=== PATIENT | male | born 1990 | race Two or more races ===

== ENCOUNTER 2018-05-20 20:10 | Emergency (ER) | payer OTHER ==
[2018-05-20] MEDS ORDERED: Ondansetron 4 MG/2 ML SDV IVPUSH ONE (20:51)
[2018-05-20] MEDS ORDERED: HYDROmorphone 0.5 MG/0.5 ML SYRINGE IVPUSH ONE (20:51)
[2018-05-20] MEDS ORDERED: Sodium Chloride 0.9% 10 ML Syringe FLUSH PRN (20:51)
[2018-05-20] MEDS ORDERED: Sodium Chloride 0.9% 1,000 ML IV ONE (20:51)
--- NOTE | 2018-05-20 21:47 | EDM.PDOC ---
ED HPI GENERAL MEDICAL PROBLEM - General Chief Complaint: Flank Pain Stated Complaint: KIDNEY PAIN Time Seen by Provider: 05/20/18 20:42 Source of Information: Reports: Patient History Limitations: Reports: No Limitations - History of Present Illness INITIAL COMMENTS - FREE TEXT/NARRATIVE: 27-year-old male presents for evaluation and treatment of kidney pain. Patient reports pain started last night. He reports pain started in his the results of his back and travels to his right flank and down his right lower abdomen and groin. He reports dysuria and hematuria. Reports he had bloody last night. He is currently rating pain at 8 out of 10 but declines pain medication. He reports associated symptoms of nausea. No fevers, chills or vomiting. He denies any penile discharge, swelling or rashes. Patient reports he is afraid to drink water due to the dysuria. Patient reports 2-3 days prior to the pain starting he was urinating what he describes looks like dirt. Denies any penile swelling, erythema, discharge or pain. Patient's never had any abdominal surgeries. He has no primary care provider. Patient reports that this is been going on intermittently since he was a young child, around age 12. states that happens periodically in the last and this occurred he was age 19. States that this has occurred in the past and normally last about 3 or 4 days and resolves on its own without intervention. Serevent tested for STDs. His is present at bedside and states that she has child last her and her STD screen was negative. 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 [No Known Home Meds] 05/20/18 [History] Past Medical History - Past Surgical History HEENT Surgical History: Reports: Oral Surgery Social & Family History - Tobacco Use Smoking Status *Q: Light Tobacco Smoker Years of Tobacco use: 9 Packs/Tins Daily: 0.5 - Caffeine Use Caffeine Use: Reports: Coffee, Energy Drinks, Soda, Tea - Alcohol Use Days Per Week of Alcohol Use: 1 Number of Drinks Per Day: 1 Total Drinks Per Week: 1 - Recreational Drug Use Recreational Drug Use: No ED ROS GENERAL - Review of Systems Review Of Systems: See Below Constitutional: Denies: Fever, Chills GI/Abdominal: Reports: Nausea. Denies: Vomiting : Reports: Dysuria, Flank Pain (right), Hematuria (x1 episode). Denies: Discharge Musculoskeletal: Reports: Back Pain ED EXAM, RENAL/ - Physical Exam Exam: See Below Exam Limited By: No Limitations General Appearance: Alert, WD/WN, No Apparent Distress Throat/Mouth: Normal Inspection, Normal Voice, No Airway Compromise Respiratory/Chest: No Respiratory Distress, Lungs Clear, Normal Breath Sounds Cardiovascular: Normal Peripheral Pulses, Regular Rate, Rhythm, No Murmur GI/Abdominal: Normal Bowel Sounds, Soft, Tender (generalized thought abdomen) Back Exam: Paraspinal Tenderness (low back around L4-L5, right sided). No: CVA Tenderness (L), CVA Tenderness (R) Neurological: Alert, Oriented, Normal Cognition Psychiatric: Normal Affect, Normal Mood Skin Exam: Warm, Dry, Normal Color Course - Vital Signs Last Recorded V/S: Last Vital Signs Temp 98.1 F 05/20/18 22:30 Pulse 56 L 05/20/18 20:17 Resp 13 05/20/18 20:17 BP 119/85 05/20/18 20:17 Pulse Ox 99 05/20/18 20:17 - Orders/Labs/Meds Labs: Laboratory Tests 05/20/18 05/20/18 05/20/18 Range/Units 20:25 20:25 20:50 WBC 8.33 (4.23-9.07) K/mm3 RBC 5.29 (4.63-6.08) M/mm3 Hgb 16.4 (13.7-17.5) gm/L Hct 46.0 (40.1-51.0) % MCV 87.0 (79.0-92.2) fl MCH 31.0 (25.7-32.2) pg MCHC 35.7 H (32.2-35.5) g/dl RDW Std Deviation 39.8 (35.1-43.9) fL Plt Count 268 (163-337) K/mm3 MPV 9.6 (9.4-12.3) fl Neut % (Auto) 67.8 (34.0-67.9) % Lymph % (Auto) 25.3 (21.8-53.1) % [place] % (Auto) 6.0 (5.3-12.2) % Eos % (Auto) 0.7 L (0.8-7.0) Baso % (Auto) 0.1 (0.1-1.2) % Neut # (Auto) 5.64 H (1.78-5.38) K/mm3 Lymph # (Auto) 2.11 (1.32-3.57) K/mm3 [place] # (Auto) 0.50 (0.30-0.82) K/mm3 Eos # (Auto) 0.06 (0.04-0.54) K/mm3 Baso # (Auto) 0.01 (0.01-0.08) K/mm3 Sodium (136-145) mEq/L Potassium (3.5-5.1) mEq/L Chloride (98-107) mEq/L Carbon Dioxide (21-32) mEq/L Anion Gap (5-15) BUN (7-18) mg/dL Creatinine (0.7-1.3) mg/dL Est Cr Clr Drug Dosing mL/min Estimated GFR (MDRD) (>60) mL/min BUN/Creatinine Ratio (14-18) Glucose (74-106) mg/dL Calcium (8.5-10.1) mg/dL Total Bilirubin (0.2-1.0) mg/dL AST (15-37) U/L ALT (16-63) U/L Alkaline Phosphatase (46-116) U/L C-Reactive Protein (<1.0) mg/dL Total Protein (6.4-8.2) g/dl Albumin (3.4-5.0) g/dl Globulin gm/dL Albumin/Globulin Ratio (1-2) Urine Color Light yellow (Yellow) Urine Appearance Clear (Clear) Urine pH 6.5 (5.0-8.0) Ur Specific [place] 1.010 (1.005-1.030) Urine Protein Negative (Negative) Urine Glucose (UA) Negative (Negative) Urine Ketones Negative (Negative) Urine Occult Blood Negative (Negative) Urine Nitrite Negative (Negative) Urine Bilirubin Negative (Negative) Urine Urobilinogen 0.2 (0.2-1.0) Ur Leukocyte Esterase Negative (Negative) Urine RBC Not seen (0-5) /hpf Urine WBC 0-5 (0-5) /hpf Ur Epithelial Cells Not seen (0-5) /hpf Urine Bacteria Occasional (FEW) /hpf Urine Mucus Few (FEW) /hpf C trachomatis DNA (PCR) Not detected N gonorrhoeae DNA (PCR) Not detected 05/20/18 Range/Units 20:51 WBC (4.23-9.07) K/mm3 RBC (4.63-6.08) M/mm3 Hgb (13.7-17.5) gm/L Hct (40.1-51.0) % MCV (79.0-92.2) fl MCH (25.7-32.2) pg MCHC (32.2-35.5) g/dl RDW Std Deviation (35.1-43.9) fL Plt Count (163-337) K/mm3 MPV (9.4-12.3) fl Neut % (Auto) (34.0-67.9) % Lymph % (Auto) (21.8-53.1) % [place] % (Auto) (5.3-12.2) % Eos % (Auto) (0.8-7.0) Baso % (Auto) (0.1-1.2) % Neut # (Auto) (1.78-5.38) K/mm3 Lymph # (Auto) (1.32-3.57) K/mm3 [place] # (Auto) (0.30-0.82) K/mm3 Eos # (Auto) (0.04-0.54) K/mm3 Baso # (Auto) (0.01-0.08) K/mm3 Sodium 141 (136-145) mEq/L Potassium 3.6 (3.5-5.1) mEq/L Chloride 106 (98-107) mEq/L Carbon Dioxide 25 (21-32) mEq/L Anion Gap 13.6 (5-15) BUN 14 (7-18) mg/dL Creatinine 0.9 (0.7-1.3) mg/dL Est Cr Clr Drug Dosing 108.67 mL/min Estimated GFR (MDRD) > 60 (>60) mL/min BUN/Creatinine Ratio 15.6 (14-18) Glucose 92 (74-106) mg/dL Calcium 9.4 (8.5-10.1) mg/dL Total Bilirubin 0.5 (0.2-1.0) mg/dL AST 16 (15-37) U/L ALT 22 (16-63) U/L Alkaline Phosphatase 93 (46-116) U/L C-Reactive Protein < 0.2 (<1.0) mg/dL Total Protein 8.1 (6.4-8.2) g/dl Albumin 4.5 (3.4-5.0) g/dl Globulin 3.6 gm/dL Albumin/Globulin Ratio 1.3 (1-2) Urine Color (Yellow) Urine Appearance (Clear) Urine pH (5.0-8.0) Ur Specific [place] (1.005-1.030) Urine Protein (Negative) Urine Glucose (UA) (Negative) Urine Ketones (Negative) Urine Occult Blood (Negative) Urine Nitrite (Negative) Urine Bilirubin (Negative) Urine Urobilinogen (0.2-1.0) Ur Leukocyte Esterase (Negative) Urine RBC (0-5) /hpf Urine WBC (0-5) /hpf Ur Epithelial Cells (0-5) /hpf Urine Bacteria (FEW) /hpf Urine Mucus (FEW) /hpf C trachomatis DNA (PCR) N gonorrhoeae DNA (PCR) Meds: Medications Discontinued Medications Generic Name Dose Route Start Last Admin Trade Name Freq PRN Reason Stop Dose Admin Hydromorphone HCl 0.5 mg 05/20/18 20:51 05/20/18 20:57 Dilaudid IVPUSH 05/20/18 20:52 Not Given ONETIME ONE Sodium Chloride 1,000 mls @ 999 mls/hr 05/20/18 20:51 05/20/18 21:03 Normal Saline IV 05/20/18 21:51 999 mls/hr ONETIME ONE Administration Ketorolac Tromethamine 30 mg 05/20/18 22:17 05/20/18 22:23 Toradol IVPUSH 05/20/18 22:18 30 mg ONETIME ONE Administration Ondansetron HCl 4 mg 05/20/18 20:51 05/20/18 20:57 Zofran IVPUSH 05/20/18 20:52 Not Given ONETIME ONE Sodium Chloride 10 ml 05/20/18 20:51 05/20/18 20:57 Saline Flush FLUSH 10 ml ASDIRECTED PRN Administration Keep Vein Open - Re-Assessments/Exams Free Text/Narrative Re-Assessment/Exam: 05/20/18 22:10 Offered medication for pain, declined. Patient does not look like a kidney stone and history of this happening since a child is inconsistent with a kidney stone. Urine also has no blood. Offered CT scan to ensure no stone or congenital abnormality, patient declined. Reports when this last occurred lasted about 4 days and resolved on its own. Encouraged to follow-up if not better. Will discharge home tonight. Discharge instructions as documented. Departure - Departure Time of Disposition: 22:18 Disposition: Home, Self-Care 01 Condition: Fair Clinical Impression: Ureteritis - Discharge Information *PRESCRIPTION DRUG MONITORING PROGRAM REVIEWED*: No *COPY OF PRESCRIPTION DRUG MONITORING REPORT IN PATIENT SILVIA: No Referrals: PCP,None [Primary Care Provider] - Roderick Mccormack PA-C [Physician Hospice Physician] - Forms: ED Department Discharge Additional Instructions: Recommend Pyridium or Azo. Take 1-2 caps PO tid prn for pain with urination. This is available [id number]. make sure you are drinking plenty of fluids. We will notify you if your gonorrhea and chlamydia testing is positive. Follow-up with family medicine if not much better within the next few days. Recommend Roderick Mandujano at [facility]. Call [phone] to schedule with one of these providers. Please return to the ER if your symptoms change or worsen.
[2018-05-20] MEDS ORDERED: Ketorolac 30 MG/ML SDV IVPUSH ONE (22:17)
[2018-05-20 22:28] LABS: C. TRACHOMATIS BY PCR NOT DETECTED; N. GONORRHOEAE BY PCR NOT DETECTED
== END 2018-05-20 22:30 | disposition home or self-care (01) ==
LOC: JD.ED 20:10
DX: N28.89 Other specified disorders of kidney and ureter (principal); F17.210 Nicotine dependence, cigarettes, uncomplicated; Z88.0 Allergy status to penicillin
CPT/HCPCS: 36415; 80053; 81001; 85025; 86140; 87491; 87591; 96361; 96374; 99284; J1885; J7040; J7050

== ENCOUNTER 2018-11-02 21:51 | Emergency (ER) | payer OTHER ==
--- NOTE | 2018-11-02 22:22 | EDM.PDOC ---
ED HPI GENERAL MEDICAL PROBLEM - General Chief Complaint: Lower Extremity Injury/Pain Stated Complaint: HURT RIGHT ANKLE Time Seen by Provider: 11/02/18 22:00 Source of Information: Reports: Patient History Limitations: Reports: No Limitations - History of Present Illness INITIAL COMMENTS - FREE TEXT/NARRATIVE: 28yo M comes in for R ankle pain and swelling after slipping on black ice, accidently inwardly twisting the ankle. He has had similar pain before, when he sprained his ankle playing soccer when he was around 12-13 years old. He is unable to bear weight at this time and is limping. Pain is worse with walking, ROM is impaired, and he has some tingling in the foot. He denies any numbness. Pulses intact. Pt took Tylenol with minimal relief, but states pain is controlled enough at this time. No other complaints at this time. 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 [No Known Home Meds] 05/20/18 [History] Past Medical History Genitourinary History: Reports: Pyelonephritis - Past Surgical History HEENT Surgical History: Reports: Oral Surgery Social & Family History - Tobacco Use Smoking Status *Q: Light Tobacco Smoker Years of Tobacco use: 8 Packs/Tins Daily: 0.2 Used Tobacco, but Quit: No - Caffeine Use Caffeine Use: Reports: None - Recreational Drug Use Recreational Drug Use: No Review of Systems - Review of Systems Review Of Systems: ROS reveals no pertinent complaints other than HPI. ED EXAM, GENERAL - Physical Exam Exam: See Below Exam Limited By: No Limitations General Appearance: Alert, WD/WN, Mild Distress Eye Exam: Bilateral Eye: EOMI, Normal Inspection, PERRL Ears: Normal External Exam, Hearing Grossly Normal Nose: Normal Inspection, Normal Mucosa, No Blood Throat/Mouth: Normal Inspection, Normal Lips, Normal Teeth, Normal Gums, Normal Oropharynx, Normal Voice, No Airway Compromise Head: Atraumatic, Normocephalic Neck: Normal Inspection Respiratory/Chest: No Respiratory Distress, Lungs Clear, Normal Breath Sounds, No Accessory Muscle Use, Chest Non-Tender Cardiovascular: Normal Peripheral Pulses, Regular Rate, Rhythm, No Edema, No Gallop, No JVD, No Murmur, No Rub Peripheral Pulses: 3+: Posterior Tibial (L), Posterior Tibial (R), Dorsalis Pedis (L), Dorsalis Pedis (R) GI/Abdominal: Normal Bowel Sounds, Soft, Non-Tender, No Organomegaly, No Distention, No Abnormal Bruit, No Mass Back Exam: Normal Inspection, Full Range of Motion, NT Extremities: Non-Tender, No Pedal Edema, Normal Capillary Refill, Joint Swelling (R ankle), Limited Range of Motion (R ankle), Redness (R ankle and lateral foot) Neurological: Alert, Oriented, CN II-XII Intact, Normal Cognition, Normal Reflexes, No Motor/Sensory Deficits, Abnormal Gait (limping) Psychiatric: Normal Affect, Normal Mood Skin Exam: Warm, Dry, Intact, Erythema (R ankle), Other (contusion R ankle and lateral aspect of R foot) Course - Vital Signs Last Recorded V/S: Last Vital Signs Temp 98.5 F 11/02/18 22:01 Pulse 78 11/02/18 22:01 Resp 18 11/02/18 22:01 BP 120/83 11/02/18 22:01 Pulse Ox 98 11/02/18 22:01 - Orders/Labs/Meds Orders: Active Orders 24 hr Category Date Time Status Ankle Min 3V Rt [CR] Stat Exams 11/02/18 22:14 Ordered - Re-Assessments/Exams Free Text/Narrative Re-Assessment/Exam: 11/02/18 22:27 Ankle 3V Xray reviewed by Dr. Dick and myself. Nothing acute seen. This is likely soft tissue in nature, a sprained ankle. Will give MACEY wrap and crutches as well as a work note for 5 days. He can f/u with orthopedic if necessary in 14 days if no improvement. Departure - Departure Time of Disposition: 22:35 Disposition: Home, Self-Care 01 Condition: Fair Clinical Impression: Sprained ankle - Discharge Information *PRESCRIPTION DRUG MONITORING PROGRAM REVIEWED*: Not Applicable *COPY OF PRESCRIPTION DRUG MONITORING REPORT IN PATIENT SILVIA: Not Applicable Instructions: Ankle Sprain, [id number], Crutch Use, Adult, [id number], Cryotherapy, [id number], Elastic Bandage and RICE Referrals: PCP,None [Primary Care Provider] - Additional Instructions: You were seen in the ED today for Right ankle pain after slipping and twisting your ankle on black ice. Xray did not reveal any fractures, which means this is likely a soft-tissue injury such as a sprained ankle. At this time, it is recommended you rest, ice, use MACEY wrap and elevate the ankle and use crutches to avoid weight-bearing. You will be given a work note for 5 days, the amount of time you will likely need crutches. Recommend wearing the MACEY wrap during the day for 10 days and may take off at night. If your injury does not improve, recommend follow up with orthopedic surgeon, Dr. Valles. You can reach him for an appointment at . Please return to ED if new or worsening symptoms. - My Orders Last 24 Hours: My Active Orders 11/02/18 22:14 Ankle Min 3V Rt [CR] Stat - Assessment/Plan Last 24 Hours: My Active Orders 11/02/18 22:14 Ankle Min 3V Rt [CR] Stat
--- NOTE | 2018-11-03 08:12 | CR ---
Right ankle: Four views of the right ankle were obtained. Comparison: No previous ankle study. Ankle mortise is symmetric. No fracture, dislocation or other bony abnormality is seen. Impression: 1. No abnormality is appreciated on right ankle exam. Diagnostic code #1
== END 2018-11-02 22:47 | disposition home or self-care (01) ==
LOC: JD.ED 21:51
DX: S93.401A Sprain of unspecified ligament of right ankle, initial encounter (principal); F17.210 Nicotine dependence, cigarettes, uncomplicated; Z88.0 Allergy status to penicillin; X50.1XXA Overexertion from prolonged static or awkward postures, initial encounter
CPT/HCPCS: 73610-26-RT; 73610-RT; 99282; 99283-25

== ENCOUNTER 2019-12-29 00:35 | Emergency (ER) | payer OTHER ==
[2019-12-29] MEDS ORDERED: Doxycycline 100 MG Cap PO STA (01:14)
--- NOTE | 2019-12-29 01:21 | EDM.PDOC ---
ED HPI GENERAL MEDICAL PROBLEM - General Chief Complaint: ENT Problem Stated Complaint: SWELLING UNDER LT EYE Time Seen by Provider: 12/29/19 00:46 Source of Information: Reports: Patient History Limitations: Reports: No Limitations - History of Present Illness INITIAL COMMENTS - FREE TEXT/NARRATIVE: Mr. Anna is a very pleasant 29-year-old man with no chronic medical problems , who states that he developed bilateral maxillary pain and watery eyes about 2 weeks ago. He took only Tylenol, and his symptoms resolved after 2 to 3 days. He reports, however, that he has had left eye pain on and off for the past 2 weeks, then developed swelling over his left maxillary sinus around 21:00 to 22: 00 this evening. He took some Tylenol around 22:00, without relief of his symptoms. He has not developed a fever. He reports only a small amount of clear rhinorrhea, but no purulent drainage. He denies any trauma to his face. Other than the above symptoms, the patient denies recent chills, sore throat, ear pain, nasal or sinus congestion, cough, dyspnea, chest pain, palpitations, nausea, vomiting, constipation, diarrhea, abdominal pain, urinary symptoms, recent weight gain or weight loss, recent bloody bowel movements or black bowel movements, recent joint aches, headaches, or rashes. Here in the ED, the patient is found to be hemodynamically stable, afebrile, saturating 99% on room air. The patient does not have a PCP. Left Cheek Pain Score (Numeric/FACES): 8 - Related Data Allergies Allergy/AdvReac Type Severity Reaction Status Date / Time Penicillins Allergy Severe Airway Verified 12/29/19 00:48 Tightness Home Meds: Home Meds Doxycycline [Vibramycin] 1 cap PO Q12H #20 cap 12/29/19 [Rx] Past Medical History - Past Surgical History HEENT Surgical History: Reports: Oral Surgery (wisdom teeth extraction) Social & Family History - Tobacco Use Smoking Status *Q: Current Every Day Smoker Years of Tobacco use: 9 Packs/Tins Daily: 0.2 Packs/Tins Daily Comment: Down from 1 ppd - Caffeine Use Caffeine Use: Reports: Coffee - Alcohol Use Alcohol Use History: Yes Alcohol Use Frequency: Socially - Recreational Drug Use Recreational Drug Use: No - Living Situation & Occupation Living situation: Reports: Single, with Family 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 ED EXAM, ENT - Physical Exam Exam: See Below Exam Limited By: No Limitations General Appearance: Alert, WD/WN, No Apparent Distress Eye Exam: Bilateral Eye: EOMI, Normal Inspection, PERRL Ears: Normal External Exam, Normal Canal, Hearing Grossly Normal, Normal TMs Nose: Normal Inspection, Normal Mucousa, No Blood Mouth/Throat: Normal Inspection, Normal Gums, Normal Lips, Normal Oropharynx, Normal Teeth Head: Atraumatic, Facial Swelling (Over left maxillary sinus/zygomaticus. No associated erythema.), Facial Tenderness (over left maxillary sinus/zygomaticus) . No: Facial Abrasions, Facial Ecchymosis Neck: Normal Inspection, Supple, Non-Tender, Full Range of Motion. No: Lymphadenopathy (L), Lymphadenopathy (R) Course - Vital Signs Last Recorded V/S: Last Vital Signs Temp 36.7 C 12/29/19 00:46 Pulse 77 12/29/19 00:46 Resp 16 12/29/19 00:46 BP 119/83 12/29/19 00:46 Pulse Ox 99 12/29/19 00:46 - Orders/Labs/Meds Meds: Medications Discontinued Medications Generic Name Dose Route Start Last Admin Trade Name Leah PRN Reason Stop Dose Admin Doxycycline Hyclate 100 mg 12/29/19 01:14 12/29/19 01:22 Vibramycin PO 12/29/19 01:15 100 mg ONETIME STA Administration - Re-Assessments/Exams Free Text/Narrative Re-Assessment/Exam: 12/29/19 01:15 As above, the patient has swelling and tenderness over his left maxillary sinus. His physical exam is otherwise unremarkable. Because he has a penicillin allergy, I will start the patient on a 10-day course of doxycycline 100 mg po BID. I explained to the patient that it may take a couple of days before he is to see a significant improvement, and that if his symptoms to improve after 2 to 3 days, he needs to return to the ED for reevaluation that will likely include a CT scan of his face. Departure - Departure Time of Disposition: :16 Disposition: Home, Self-Care 01 Condition: Good Clinical Impression: Facial infection - Discharge Information *PRESCRIPTION DRUG MONITORING PROGRAM REVIEWED*: Not Applicable *COPY OF PRESCRIPTION DRUG MONITORING REPORT IN PATIENT SILVIA: Not Applicable Prescriptions: Doxycycline [Vibramycin] 1 cap PO Q12H #20 cap Referrals: PCP,None [Primary Care Provider] - Forms: ED Department Discharge, ED Return to Work/School Form Additional Instructions: You were seen in the emergency room for painful swelling over your left cheek bone. Based on your history and physical examination, you appear to have a facial infection. You have been started on the antibiotic doxycycline, and a prescription for doxycycline [facility], located in the [facility] across [address] from the hospital. Take 1 tablet of doxycycline every 12 hours, starting this morning, 12/29/2019, as prescribed. Finish the entire prescription unless told otherwise by a doctor. In addition to doxycycline, you may take [id number] ibuprofen, 3 tablets ( 600 mg) every 8 hours, with food, as needed for discomfort. A note to be off work until , 01/01/2020, has been provided. As discussed, your pain and swelling will likely get worse for the next day or two, however, if it has not started to improve within 2 or 3 days, please return to the ER for reevaluation. Sepsis Event Note - Evaluation Sepsis Screening Result: No Definite Risk - Focused Exam Vital Signs: Vital Signs Temp Pulse Resp BP Pulse Ox 12/29/19 00:46 36.7 C 77 16 119/83 99 Date Exam was Performed: 12/29/19 Time Exam was Performed: 01:34
== END 2019-12-29 01:31 | disposition home or self-care (01) ==
LOC: JD.ED 00:35
DX: L08.9 Local infection of the skin and subcutaneous tissue, unspecified (principal); F17.210 Nicotine dependence, cigarettes, uncomplicated; Z88.0 Allergy status to penicillin
CPT/HCPCS: 99283; A9270-GY

== ENCOUNTER 2021-03-20 20:11 | Emergency (ER) | payer OTHER ==
[2021-03-20] MEDS ORDERED: Ondansetron 4 MG/2 ML SDV IVPUSH ONE (20:40)
[2021-03-20] MEDS ORDERED: Sodium Chloride 0.9% 1,000 ML IV ONE (20:40)
[2021-03-20] MEDS ORDERED: Sodium Chloride 0.9% 10 ML Syringe FLUSH PRN (20:40)
[2021-03-20] MEDS ORDERED: HYDROmorphone 0.5 MG/0.5 ML Syringe IVPUSH ONE (20:41)
--- NOTE | 2021-03-20 21:04 | EDM.PDOC ---
ED HPI GENERAL MEDICAL PROBLEM - General Chief Complaint: Headache Stated Complaint: VOMITTING, HEADACHES, NAUSEA Time Seen by Provider: 03/20/21 20:27 Source of Information: Reports: Patient History Limitations: Reports: No Limitations - History of Present Illness INITIAL COMMENTS - FREE TEXT/NARRATIVE: 30-year-old male presents the emergency department complaints of headache, nausea, vomiting and diarrhea. Patient states that he was working out in the heat all day yesterday and at approximately 1 PM he developed headache, nausea, vomiting and diarrhea. 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 He states they do have fans running in the area however there is also an air compressor in the building that puts off heat. He states it was approximately 90 degrees outside yesterday and significantly hotter within the shack. He states he felt he was drinking plenty of water and Gatorade's however at about 1 PM he developed symptoms. He states he went home last evening and felt like he drink plenty of fluids but was unable to keep much of anything down. He did attempt to take Tylenol and ibuprofen today for the headache pain but he states he has not had any relief. He denies any muscle cramps or abdominal cramps. He states that his chest is sore from vomiting so profusely. He denies any fever or chills. He denies any cough or shortness of breath. He states he is otherwise healthy and felt fine prior to going to work yesterday morning. Left Frontal Headache Pain Score (Numeric/FACES): 9 - Related Data Allergies Allergy/AdvReac Type Severity Reaction Status Date / Time Penicillins Allergy Severe Airway Verified 03/20/21 20:29 Tightness Home Meds: Home Meds . 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 - Physical Exam Exam: See Below Exam Limited By: No Limitations General Appearance: Alert, WD/WN, No Apparent Distress Ears: Normal External Exam, Hearing Grossly Normal Nose: Normal Inspection Throat/Mouth: Normal Inspection, Normal Lips, Normal Voice, No Airway Compromise Head Exam: Atraumatic Neck: Normal Inspection, Supple Respiratory/Chest: No Respiratory Distress, Lungs Clear, Normal Breath Sounds, No Accessory Muscle Use. No: Chest Non-Tender (With palpation patient states it is due to profuse vomiting) Cardiovascular: Normal Peripheral Pulses, Regular Rate, Rhythm, No Edema, No Murmur GI/Abdominal: Normal Bowel Sounds, Soft, Non-Tender, No Distention (Male) Exam: Deferred Rectal (Males) Exam: Deferred Neuro Exam (Abbreviated): Alert, Oriented, Normal Cognition Back Exam: Normal Inspection, Full Range of Motion Extremities: Normal Inspection, Normal Range of Motion, Non-Tender, No Pedal Edema, Normal Capillary Refill Psychiatric: Normal Affect, Normal Mood Skin Exam: Warm, Dry, Intact, Normal Color, No Rash Course - Vital Signs Text/Narrative:: As stated above patient was working out in 90+ degree heat and a small shack that was not air conditioned yesterday. He attempted to drink plenty of water and electrolyte replacement type of drinks however he states about 1 PM he developed a headache, nausea, vomiting, and diarrhea. He denies any blood in his stool. He denies any fever or chills. He states he does have generalized body aches today. I suspect he is likely dehydrated from being out in the heat and has heat exhaustion. I have ordered him a liter of normal saline, Zofran for the nausea and Dilaudid for the headache. Will obtain labs to include a CBC, CMP, magnesium level, C-reactive protein and a lactic acid level. Last Recorded V/S: Last Vital Signs Temp 98.8 F 03/20/21 20:27 Pulse 81 03/20/21 20:27 Resp 16 03/20/21 20:27 BP 128/81 03/20/21 20:27 Pulse Ox 97 03/20/21 20:27 - Orders/Labs/Meds Orders: Active Orders 24 hr Category Date Time Status CORONAVIRUS COVID-19 DOMINICK [MOLEC] Stat Lab 03/20/21 21:44 Ordered Sodium Chloride 0.9% [Saline Flush] Med 03/20/21 20:40 Active 10 ml FLUSH ASDIRECTED PRN Saline Lock Insert [OM.PC] Stat Oth 03/20/21 20:40 Ordered Medication Orders Sodium Chloride (Sodium Chloride 0.9% 10 Ml Syringe) 10 ml FLUSH ASDIRECTED PRN PRN Reason: Keep Vein Open Last Admin: 03/20/21 20:53 Dose: 10 ml Documented by: CHIQUITA Labs: Laboratory Tests 03/20/21 03/20/21 03/20/21 Range/Units 20:54 20:54 20:54 WBC 6.82 (4.23-9.07) K/mm3 RBC 5.26 (4.63-6.08) M/mm3 Hgb 16.5 (13.7-17.5) gm/dl Hct 46.8 (40.1-51.0) % MCV 89.0 (79.0-92.2) fl MCH 31.4 (25.7-32.2) pg MCHC 35.3 (32.2-35.5) g/dl RDW Std Deviation 40.9 (35.1-43.9) fL Plt Count 296 (163-337) K/mm3 MPV 9.2 L (9.4-12.3) fl Neut % (Auto) 57.0 (34.0-67.9) % Lymph % (Auto) 33.6 (21.8-53.1) % Jay % (Auto) 7.8 (5.3-12.2) % Eos % (Auto) 1.2 (0.8-7.0) Baso % (Auto) 0.3 (0.1-1.2) % Neut # (Auto) 3.89 (1.78-5.38) K/mm3 Lymph # (Auto) 2.29 (1.32-3.57) K/mm3 Jay # (Auto) 0.53 (0.30-0.82) K/mm3 Eos # (Auto) 0.08 (0.04-0.54) K/mm3 Baso # (Auto) 0.02 (0.01-0.08) K/mm3 Sodium 142 (136-145) mEq/L Potassium 3.8 (3.5-5.1) mEq/L Chloride 104 (98-107) mEq/L Carbon Dioxide 30 (21-32) mEq/L Anion Gap 11.8 (5-15) BUN 12 (7-18) mg/dL Creatinine 1.2 (0.7-1.3) mg/dL Est Cr Clr Drug Dosing 82.70 mL/min Estimated GFR (MDRD) > 60 (>60) mL/min BUN/Creatinine Ratio 10.0 L (14-18) Glucose 104 H (70-99) mg/dL Lactic Acid 0.8 (0.4-2.0) mmol/L Calcium 9.0 (8.5-10.1) mg/dL Magnesium 2.0 (1.8-2.4) mg/dL Total Bilirubin 0.5 (0.2-1.0) mg/dL AST 17 (15-37) U/L ALT 39 (16-63) U/L Alkaline Phosphatase 90 (46-116) U/L Creatine Kinase (39-308) U/L C-Reactive Protein <0.2 (<1.0) mg/dL Total Protein 7.7 (6.4-8.2) g/dl Albumin 4.3 (3.4-5.0) g/dl Globulin 3.4 gm/dL Albumin/Globulin Ratio 1.3 (1-2) 03/20/21 Range/Units 20:54 WBC (4.23-9.07) K/mm3 RBC (4.63-6.08) M/mm3 Hgb (13.7-17.5) gm/dl Hct (40.1-51.0) % MCV (79.0-92.2) fl MCH (25.7-32.2) pg MCHC (32.2-35.5) g/dl RDW Std Deviation (35.1-43.9) fL Plt Count (163-337) K/mm3 MPV (9.4-12.3) fl Neut % (Auto) (34.0-67.9) % Lymph % (Auto) (21.8-53.1) % Jay % (Auto) (5.3-12.2) % Eos % (Auto) (0.8-7.0) Baso % (Auto) (0.1-1.2) % Neut # (Auto) (1.78-5.38) K/mm3 Lymph # (Auto) (1.32-3.57) K/mm3 Jay # (Auto) (0.30-0.82) K/mm3 Eos # (Auto) (0.04-0.54) K/mm3 Baso # (Auto) (0.01-0.08) K/mm3 Sodium (136-145) mEq/L Potassium (3.5-5.1) mEq/L Chloride (98-107) mEq/L Carbon Dioxide (21-32) mEq/L Anion Gap (5-15) BUN (7-18) mg/dL Creatinine (0.7-1.3) mg/dL Est Cr Clr Drug Dosing mL/min Estimated GFR (MDRD) (>60) mL/min BUN/Creatinine Ratio (14-18) Glucose (70-99) mg/dL Lactic Acid (0.4-2.0) mmol/L Calcium (8.5-10.1) mg/dL Magnesium (1.8-2.4) mg/dL Total Bilirubin (0.2-1.0) mg/dL AST (15-37) U/L ALT (16-63) U/L Alkaline Phosphatase (46-116) U/L Creatine Kinase 108 (39-308) U/L C-Reactive Protein (<1.0) mg/dL Total Protein (6.4-8.2) g/dl Albumin (3.4-5.0) g/dl Globulin gm/dL Albumin/Globulin Ratio (1-2) Meds: Medications Generic Name Dose Route Start Last Admin Trade Name Freq PRN Reason Stop Dose Admin Sodium Chloride 10 ml 03/20/21 20:40 03/20/21 20:53 Sodium Chloride 0.9% 10 Ml Syringe FLUSH 10 ml ASDIRECTED PRN Administration Keep Vein Open Discontinued Medications Generic Name Dose Route Start Last Admin Trade Name Freq PRN Reason Stop Dose Admin Hydromorphone HCl 0.5 mg 03/20/21 20:41 03/20/21 20:53 Hydromorphone 0.5 Mg/0.5 Ml Syringe IVPUSH 03/20/21 20:42 0.5 mg ONETIME ONE Administration Sodium Chloride 1,000 mls @ 999 mls/hr 03/20/21 20:40 03/20/21 20:52 Normal Saline IV 03/20/21 21:40 999 mls/hr ONETIME ONE Administration Ketorolac Tromethamine 30 mg 03/20/21 21:57 03/20/21 22:03 Ketorolac 30 Mg/Ml Sdv IVPUSH 03/20/21 21:58 30 mg ONETIME ONE Administration Metoclopramide HCl 5 mg 03/20/21 21:57 03/20/21 22:03 Metoclopramide 10 Mg/2 Ml Sdv IVPUSH 03/20/21 21:58 5 mg ONETIME ONE Administration Ondansetron HCl 4 mg 03/20/21 20:40 03/20/21 20:52 Ondansetron 4 Mg/2 Ml Sdv IVPUSH 03/20/21 20:41 4 mg ONETIME ONE Administration - Re-Assessments/Exams Free Text/Narrative Re-Assessment/Exam: 03/20/21 21:58 Hematology is on chemistries are essentially unremarkable. The patient does not appear dehydrated and he has no signs of infection. His liter of IV fluids has infused. He states that his nausea is much better however his headache is still unchanged. He does admit to having a history of migraines. He says he is having photophobia and phonophobia. We will see if I can abort the migraine headache with Toradol and Reglan. I am hesitant to give him Benadryl as he is already quite drowsy from the Dilaudid. 03/20/21 22:53 Patient reports that his headache pain is down to a 1 and he feels like he is ready to go home. Departure - Departure Time of Disposition: 22:53 Disposition: Home, Self-Care 01 Condition: Good Clinical Impression: Migraine Nausea & vomiting Qualifiers: Vomiting type: unspecified Vomiting Intractability: intractable Qualified Code(s): R11.2 - Nausea with vomiting, unspecified - Discharge Information Referrals: PCP,None [Primary Care Provider] - Forms: ED Department Discharge, ED Return to Work/School Form Additional Instructions: You were seen in the emergency department with headache, nausea, vomiting, and diarrhea. Labs were completed which were all within normal limits. You were given IV fluids and pain medication and nausea medication. This did seem to help decrease your headache pain and decrease the nausea. Go home and rest. Drink plenty of fluids. Should your condition worsen or change, do not hesitate returning to the emergency department. Sepsis Event Note (ED) - Evaluation Sepsis Screening Result: No Definite Risk - Focused Exam Vital Signs: Vital Signs Temp Pulse Resp BP Pulse Ox 03/20/21 20:27 98.8 F 81 16 128/81 97 - My Orders Last 24 Hours: My Active Orders 03/20/21 20:40 Sodium Chloride 0.9% [Saline Flush] 10 ml FLUSH ASDIRECTED PRN Saline Lock Insert [OM.PC] Stat 03/20/21 21:44 CORONAVIRUS COVID-19 DOMINICK [MOLEC] Stat - Assessment/Plan Last 24 Hours: My Active Orders 03/20/21 20:40 Sodium Chloride 0.9% [Saline Flush] 10 ml FLUSH ASDIRECTED PRN Saline Lock Insert [OM.PC] Stat 03/20/21 21:44 CORONAVIRUS COVID-19 DOMINICK [MOLEC] Stat
[2021-03-20] MEDS ORDERED: Metoclopramide 10 MG/2 ML SDV IVPUSH ONE (21:57)
[2021-03-20] MEDS ORDERED: Ketorolac 30 MG/ML SDV IVPUSH ONE (21:57)
== END 2021-03-20 23:00 | disposition home or self-care (01) ==
LOC: JD.ED 20:11
DX: G43.909 Migraine, unspecified, not intractable, without status migrainosus (principal); Z88.0 Allergy status to penicillin; Z72.0 Tobacco use
CPT/HCPCS: 36415; 80053; 82550; 83605; 83735; 85025; 86140; 96374; 96375; 99284; J1170; J1885; J2405; J2765; J7030

== ENCOUNTER 2021-06-11 19:16 | Emergency (ER) | payer OTHER ==
--- NOTE | 2021-06-11 19:57 | EDM.PDOC ---
ED HPI GENERAL MEDICAL PROBLEM - General Chief Complaint: Chest Pain Stated Complaint: RT ARM PAIN/CHEST PAIN Time Seen by Provider: 06/11/21 19:23 Source of Information: Reports: Patient, RN Notes Reviewed History Limitations: Reports: No Limitations - History of Present Illness INITIAL COMMENTS - FREE TEXT/NARRATIVE: Patient is a 30-year-old male who presents to the ER for evaluation of his right arm/chest discomfort. Patient states that a few days ago, he developed some right arm/shoulder pain and did not think much of it. He states that over the past few days however has progressed into his upper chest, and this is intermittent seems to worsen with deep breaths, coughing and laughing. States that the pain is a very sharp intense pain and then gets better. He did take some Tylenol and ibuprofen for pain management and did not seem to help. He has no associated sick-like symptoms like fevers or chills, or any sort of nausea/vomiting/diarrhea. Patient states he has had issues like this in the past, but they did not last this long so he is more worried at this time due to the length of the symptoms. 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 He is not done any more heavy lifting than normal the past few days. chest and shoulder Pain Score (Numeric/FACES): 4 - Related Data Allergies Allergy/AdvReac Type Severity Reaction Status Date / Time Penicillins Allergy Severe Airway Verified 06/11/21 19:30 Tightness Home Meds: Home Meds Naproxen [Naprosyn] 500 mg PO Q12HR #20 tab 06/11/21 [Rx] Orphenadrine [Norflex] 100 mg PO BID PRN #20 tab 06/11/21 [Rx] Past Medical History Genitourinary History: Reports: Pyelonephritis - Past Surgical History HEENT Surgical History: Reports: Oral Surgery Social & Family History - Tobacco Use Tobacco Use Status *Q: Current Every Day Tobacco User Years of Tobacco use: 10 Packs/Tins Daily: 0.2 - Caffeine Use Caffeine Use: Reports: None - Recreational Drug Use Recreational Drug Use: No - Living Situation & Occupation Living situation: Reports: Single, with Family 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 ED EXAM, GENERAL - Physical Exam Exam: See Below Exam Limited By: No Limitations General Appearance: Alert, WD/WN, No Apparent Distress Respiratory/Chest: No Respiratory Distress, Lungs Clear, Normal Breath Sounds, No Accessory Muscle Use, Other (Right upper chest tender to palpation) Cardiovascular: Normal Peripheral Pulses, Regular Rate, Rhythm, No Edema Extremities: Normal Inspection, Normal Range of Motion, Normal Capillary Refill Neurological: Alert, Oriented, Normal Cognition, No Motor/Sensory Deficits Psychiatric: Normal Affect, Normal Mood Skin Exam: Warm, Dry, Intact, Normal Color, No Rash #1 Interpretation EKG Date: 06/11/21 Time: 19:37 Rhythm: NSR Rate (Beats/Min): 81 Middle Bass: Normal P-Wave: Present QRS: Normal ST-T: Normal QT: Normal Comparison: NA - No Prior EKG EKG Interpretation Comments: No obvious ischemia or acute ST changes noted, reviewed by myself and Dr. Dick. Course - Vital Signs Last Recorded V/S: Last Vital Signs Temp 97.5 F 06/11/21 19:27 Pulse 86 06/11/21 19:27 Resp 18 06/11/21 19:27 BP 127/83 06/11/21 19:27 Pulse Ox 99 06/11/21 19:27 - Orders/Labs/Meds Labs: Laboratory Tests 06/11/21 06/11/21 Range/Units 19:40 19:40 WBC 8.15 (4.23-9.07) K/mm3 RBC 5.26 (4.63-6.08) M/mm3 Hgb 16.3 (13.7-17.5) gm/dl Hct 47.3 (40.1-51.0) % MCV 89.9 (79.0-92.2) fl MCH 31.0 (25.7-32.2) pg MCHC 34.5 (32.2-35.5) g/dl RDW Std Deviation 41.0 (35.1-43.9) fL Plt Count 288 (163-337) K/mm3 MPV 9.4 (9.4-12.3) fl Neut % (Auto) 67.4 (34.0-67.9) % Lymph % (Auto) 25.6 (21.8-53.1) % Lake % (Auto) 5.5 (5.3-12.2) % Eos % (Auto) 1.1 (0.8-7.0) Baso % (Auto) 0.2 (0.1-1.2) % Neut # (Auto) 5.48 H (1.78-5.38) K/mm3 Lymph # (Auto) 2.09 (1.32-3.57) K/mm3 Lake # (Auto) 0.45 (0.30-0.82) K/mm3 Eos # (Auto) 0.09 (0.04-0.54) K/mm3 Baso # (Auto) 0.02 (0.01-0.08) K/mm3 Sodium 139 (136-145) mEq/L Potassium 3.5 (3.5-5.1) mEq/L Chloride 103 (98-107) mEq/L Carbon Dioxide 24 (21-32) mEq/L Anion Gap 15.5 H (5-15) BUN 12 (7-18) mg/dL Creatinine 0.9 (0.7-1.3) mg/dL Est Cr Clr Drug Dosing 106.30 mL/min Estimated GFR (MDRD) > 60 (>60) mL/min BUN/Creatinine Ratio 13.3 L (14-18) Glucose 164 H (70-99) mg/dL Calcium 8.4 L (8.5-10.1) mg/dL Total Bilirubin 0.6 (0.2-1.0) mg/dL AST TNP ALT TNP Alkaline Phosphatase 92 (46-116) U/L Troponin I < 0.017 (0.00-0.056) ng/mL Total Protein TNP Albumin 4.1 (3.4-5.0) g/dl Globulin 3.5 gm/dL Albumin/Globulin Ratio 1.2 (1-2) Meds: Medications Discontinued Medications Generic Name Dose Route Start Last Admin Trade Name Freq PRN Reason Stop Dose Admin Orphenadrine Citrate 100 mg 06/11/21 20:35 06/11/21 20:53 Orphenadrine 100 Mg Tab.Er PO 06/11/21 20:36 100 mg ONETIME ONE Administration - Re-Assessments/Exams Free Text/Narrative Re-Assessment/Exam: 06/11/21 19:56 Patient presents to the ER for evaluation of his right arm/shoulder pain. We will go ahead and get a EKG, chest x-ray and basic labs for evaluation. I do believe this is chest wall tenderness as this is reproducible on exam. 06/11/21 20:45 CBC has resulted and is unremarkable, the chest x-ray also has been read by radiology, there is a oval density within the left upper chest, radiologist is recommending a PA and lateral view for further evaluation, he is uncertain if this is parenchymal or pleural in location. 06/11/21 20:58 Patient's laboratory evaluation has resulted, no sign of cardiac ischemia, as troponin is undetectably low. CMP is unremarkable as well. Awaiting radiology to take the 2 view chest as per recommended by radiologist. Patient may likely be discharged home with general recommendations. 06/11/21 21:37 Two-view chest was read by radiology as a probable bone island which may be causing the nodular density seen on the prior x-ray. No other acute findings. Departure - Departure Time of Disposition: 21:34 Disposition: Home, Self-Care 01 Condition: Good Clinical Impression: Musculoskeletal chest pain Prescriptions: Naproxen [Naprosyn] 500 mg PO Q12HR #20 tab Orphenadrine [Norflex] 100 mg PO BID PRN #20 tab PRN Reason: Spasms Instructions: Chest Wall Pain, [id number] Referrals: PCP,None [Primary Care Provider] - Forms: ED Department Discharge Additional Instructions: You were evaluated in the ER today for your chest pain. Your EKG, chest x-ray, and laboratory evaluation are all unremarkable. The chest pain is thought likely due to musculoskeletal etiology. You have been given a prescription for 2 different medications, 1 will be an anti-inflammatory the other is a muscle relaxer, Naprosyn will be the anti- inflammatory and Norflex (orphenadrine) will be the muscle relaxer. You were given 1 tablet of Norflex in the ER at today's visit, do not take another tablet until tomorrow morning. This medication [facility] electronically [facility] [place] [facility] Please follow-up with your regular provider for ongoing management of your health. Please return to the ER at any time if symptoms change or worsen. Sepsis Event Note (ED) - Evaluation Sepsis Screening Result: No Definite Risk - Focused Exam Vital Signs: Vital Signs Temp Pulse Resp BP Pulse Ox 10/23/21 19:27 97.5 F 86 18 127/83 99
--- NOTE | 2021-06-11 20:12 | CR ---
Chest: Portable view of the chest was obtained. Comparison: No prior chest imaging is available. Technique is somewhat dark. There is an oval density within the left upper chest. Lungs otherwise are grossly clear. Heart size and mediastinum are normal. Bony structures show nothing acute. Impression: 1. Oval density within the left upper chest. Uncertain if this is parenchymal or pleural in location. Recommend PA and lateral view to further evaluate. 2. Nothing acute is otherwise seen on somewhat limited portable chest x-ray. Diagnostic code #3
[2021-06-11] MEDS ORDERED: Orphenadrine 100 MG Tab.ER PO ONE (20:35)
--- NOTE | 2021-06-11 21:29 | CR ---
Chest: PA and lateral views of the chest were obtained. Comparison: Prior chest x-ray of 06/11/21 (7:46 PM). Heart size and mediastinum are within normal limits. Lungs are clear with no acute parenchymal change. Slight nodular density is noted within the left upper chest which appears to correlate to the sixth rib most likely representing bone island. Bony structures show nothing acute. Impression: 1. Probable bone island causing the nodular density within the left upper chest. 2. Nothing acute is otherwise seen on 2 view chest x-ray. Diagnostic code #2
== END 2021-06-11 21:43 | disposition home or self-care (01) ==
LOC: JD.ED 19:16
DX: R07.89 Other chest pain (principal); Z72.0 Tobacco use; Z88.0 Allergy status to penicillin
CPT/HCPCS: 36415; 71045; 71046; 80053; 84484; 85025; 93005; 99285; A9270

== ENCOUNTER 2022-08-21 19:41 | Emergency (ER) | payer OTHER ==
[2022-08-21] MEDS: Sodium Chloride 0.9% 10 ML Syringe FLUSH PRN (22:20)
[2022-08-21 23:02] LABS: ESTIMATED GFR 118 mL/min (>60)
[2022-08-22] MEDS ORDERED: Iopamidol 612 MG/ML 100 ML Bottle IVPUSH ONE (00:09)
[2022-08-22] MEDS ORDERED: Sodium Chloride 0.9% 10 ML Syringe FLUSH ONE (00:09)
[2022-08-22] MEDS ORDERED: Sodium Chloride 0.9% 1,000 ML IV SCH (00:15)
[2022-08-22] MEDS: Sodium Chloride 0.9% 10 ML Syringe FLUSH PRN (00:21)
== END 2022-08-22 01:05 | disposition home or self-care (01) ==
LOC: JD.ED 19:41
DX: R10.31 Right lower quadrant pain (principal); R10.32 Left lower quadrant pain; R19.7 Diarrhea, unspecified; Z87.891 Personal history of nicotine dependence; Z88.0 Allergy status to penicillin; Z86.16 Personal history of COVID-19
CPT/HCPCS: 36415; 74177; 80053; 83690; 83735; 85025; 86140; 99284; J3490; J7030; Q9967

== ENCOUNTER 2022-08-29 06:52 | Day surgery (SDC) | payer OTHER ==
[~2022-08-29 06:52] MED LIST: Lactated Ringers 1,000 ML IV SCH; Lidocaine 1%/Sod Bicarbonate in NS 8.4% 1 ML Syringe IDERM PRN; Sodium Chloride 0.9% 10 ML Syringe FLUSH PRN; Sodium Chloride 0.9% 10 ML Syringe FLUSH SCH
[2022-08-29] MEDS ORDERED: Lidocaine 1%/Sod Bicarbonate in NS 8.4% 1 ML Syringe IDERM PRN (07:36)
[2022-08-29] MEDS ORDERED: Sodium Chloride 0.9% 10 ML Syringe FLUSH PRN (07:36)
[2022-08-29] MEDS ORDERED: Lactated Ringers 1,000 ML IV SCH (07:45)
[2022-08-29] MEDS ORDERED: Lidocaine 1% 4 ML ONE (08:08)
[2022-08-29] MEDS ORDERED: Propofol 200 MG/20 ML SDV ONE ×2 (08:08→08:41)
[2022-08-29] MEDS ORDERED: Sodium Chloride 0.9% 10 ML Syringe FLUSH SCH (09:00)
== END 2022-08-29 10:05 | disposition home or self-care (01) ==
LOC: JD.SDS 06:52
PROVIDERS: ATTEND Surgery
DX: K29.50 Unspecified chronic gastritis without bleeding (principal); K25.9 Gastric ulcer, unspecified as acute or chronic, without hemorrhage or perforation; B96.81 Helicobacter pylori [H. pylori] as the cause of diseases classified elsewhere; K62.5 Hemorrhage of anus and rectum; F41.9 Anxiety disorder, unspecified; Z86.16 Personal history of COVID-19; Z88.0 Allergy status to penicillin; Z79.899 Other long term (current) drug therapy; Z98.890 Other specified postprocedural states
CPT/HCPCS: 43239; 45380; J2704; J7120

== ENCOUNTER 2023-01-24 00:49 | Emergency (ER) | payer OTHER ==
[2023-01-24] MEDS ORDERED: Acetaminophen/oxyCODONE 325-5 MG Tab PO ONE (01:59)
== END 2023-01-24 02:28 | disposition other institution (70) ==
LOC: JD.ED 00:49
DX: S39.94XA Unspecified injury of external genitals, initial encounter (principal); Z86.16 Personal history of COVID-19; Z88.0 Allergy status to penicillin
CPT/HCPCS: 99284; A9270; 99282

== ENCOUNTER 2023-11-01 01:45 | Emergency (ER) | payer OTHER ==
[2023-11-01] MEDS: Dextrose 5%-Lactated Ringers 1,000 ML IV SCH (02:47)
[2023-11-01] MEDS: diphenhydrAMINE 50 MG/ML SDV IVPUSH ONE (02:47)
[2023-11-01] MEDS: HYDROmorphone 0.5 MG/0.5 ML Syringe IVPUSH ONE (02:47)
[2023-11-01] MEDS: Metoclopramide 10 MG/2 ML SDV IVPUSH ONE (02:47)
[2023-11-01 03:02] LABS: CORONAVIRUS COVID-19 NAA NEGATIVE (NEGATIVE); INFLUENZA A NAA NEGATIVE (NEGATIVE); RESPIRATORY SYNCYTIAL VIR NAA NEGATIVE (NEGATIVE)
[2023-11-01 03:18] LABS: BASOPHILS PERCENT AUTO 0.3 % (0.0-1.0); EOSINOPHILS ABSOLUTE AUTO 0.1 K/mm3 (0.0-0.4); EOSINOPHILS PERCENT AUTO 1.8 % (0.0-6.0); HEMATOCRIT 49.4 % (42.0-52.0); IMMATURE GRAN ABSOLUTE AUTO 0.01 K/mm3 (0.00-0.05); IMMATURE GRAN PERCENT AUTO 0.2 % (0.0-0.4); LYMPHOCYTES ABSOLUTE AUTO 1.6 K/mm3 (1.0-4.8); LYMPHOCYTES PERCENT AUTO 25.8 % (24.0-44.0); MEAN CORPUSCULAR HGB CONC 34.4 g/dl (32.0-36.0); MEAN CORPUSCULAR VOLUME 90.1 fl (83.0-99.0); MEAN PLATELET VOLUME 9.4 fl (9.4-12.4); MONOCYTES ABSOLUTE AUTO 0.8 K/mm3 (0.0-0.8); MONOCYTES PERCENT AUTO 13.1 % (0.0-8.0); NEUTROPHILS ABSOLUTE AUTO 3.6 K/mm3 (1.8-7.7); NEUTROPHILS PERCENT AUTO 58.8 % (41.0-71.0); PLATELET COUNT,PLT 256 K/mm3 (150-400); RED BLOOD CELL COUNT 5.48 M/mm3 (4.52-5.90); WHITE BLOOD CELL COUNT,WBC 6.05 K/mm3 (3.9-11.3)
[2023-11-01 03:37] LABS: A/G RATIO 1.1 (1-2); ALBUMIN 4.2 g/dl (3.4-5.0); ANION GAP 12.9 (5-15); BILIRUBIN TOTAL 0.6 mg/dL (0.2-1.0); BUN/CREATININE RATIO 9.1 (14-18); C-REACTIVE PROTEIN 2.22 mg/dL (<0.30); CREATININE 1.1 mg/dL (0.7-1.3); EST CRCL DRUG DOSING (CG) 87.77 mL/min; MAGNESIUM 1.7 mg/dL (1.8-2.4); POTASSIUM,K 3.9 mEq/L (3.5-5.1); PROTEIN TOTAL,TP 8.2 g/dl (6.4-8.2)
[2023-11-01] MEDS: Lactated Ringers 1,000 ML IV SCH (03:57)
[2023-11-01] MEDS: Dicyclomine 10 MG Cap PO ONE (05:00)
== END 2023-11-01 05:09 | disposition home or self-care (01) ==
LOC: JD.ED 01:45
DX: A08.4 Viral intestinal infection, unspecified (principal); E86.0 Dehydration; Z88.0 Allergy status to penicillin; Z79.899 Other long term (current) drug therapy; Z86.16 Personal history of COVID-19
CPT/HCPCS: 0241U; 36415; 80053; 82010; 83605; 83735; 85025; 86140; 87493; 96361; 96374; 96375; 99284; A9270; J1170; J1200; J2765; J7120; J7121; 87045; 87046; 87899

== ENCOUNTER 2024-03-26 19:45 | Emergency (ER) | payer OTHER ==
[2024-03-26] MEDS: Gabapentin 100 MG Cap PO ONE (20:56)
== END 2024-03-26 20:57 | disposition home or self-care (01) ==
LOC: JD.ED 19:45
DX: G89.18 Other acute postprocedural pain (principal); N50.811 Right testicular pain; N50.812 Left testicular pain; Z86.16 Personal history of COVID-19; Z79.899 Other long term (current) drug therapy; Z88.0 Allergy status to penicillin
CPT/HCPCS: 99283; A9270

== ENCOUNTER 2024-12-13 21:10 | Emergency (ER) | payer OTHER ==
[2024-12-13 21:57] LABS: BASOPHILS PERCENT AUTO 0.3 % (0.0-1.0); EOSINOPHILS ABSOLUTE AUTO 0.1 K/mm3 (0.0-0.4); EOSINOPHILS PERCENT AUTO 1.7 % (0.0-6.0); HEMATOCRIT 48.2 % (42.0-52.0); HEMOGLOBIN 16.4 gm/dl (14.0-18.0); IMMATURE GRAN ABSOLUTE AUTO 0.02 K/mm3 (0.00-0.05); IMMATURE GRAN PERCENT AUTO 0.3 % (0.0-0.4); LYMPHOCYTES ABSOLUTE AUTO 2.7 K/mm3 (1.0-4.8); LYMPHOCYTES PERCENT AUTO 35.3 % (24.0-44.0); MEAN CORPUSCULAR HEMOGLOBIN 30.8 pg (28.0-32.0); MEAN CORPUSCULAR VOLUME 90.4 fl (83.0-99.0); MEAN PLATELET VOLUME 9.5 fl (9.4-12.4); MONOCYTES ABSOLUTE AUTO 0.5 K/mm3 (0.0-0.8); MONOCYTES PERCENT AUTO 6.2 % (0.0-8.0); NEUTROPHILS ABSOLUTE AUTO 4.3 K/mm3 (1.8-7.7); NEUTROPHILS PERCENT AUTO 56.2 % (41.0-71.0); PLATELET COUNT,PLT 318 K/mm3 (150-400); RED BLOOD CELL COUNT 5.33 M/mm3 (4.52-5.90); WHITE BLOOD CELL COUNT,WBC 7.61 K/mm3 (3.9-11.3)
[2024-12-13] MEDS: Famotidine 20 MG Tab PO ONE (22:10)
[2024-12-13] MEDS: Alum Hydrox/Mag Hydrox/Simeth 30 ML, Lidocaine 2% 15 ML PO ONE (22:10)
[2024-12-13] MEDS: Sodium Chloride 0.9% 10 ML Syringe FLUSH PRN (22:12)
[2024-12-13 22:16] LABS: A/G RATIO 1.1 (1-2); ALANINE AMINOTRANSFERASE,ALT 44 U/L (16-63); ALBUMIN 4.1 g/dl (3.4-5.0); ALKALINE PHOSPHATASE 108 U/L (46-116); ANION GAP 11.9 (5-15); BILIRUBIN TOTAL 0.5 mg/dL (0.2-1.0); BLOOD UREA NITROGEN,BUN 13 mg/dL (7-18); BUN/CREATININE RATIO 10.8 (14-18); CALCIUM 9.1 mg/dL (8.5-10.1); CARBON DIOXIDE,CO2 29 mEq/L (21-32); CHLORIDE,CL 104 mEq/L (98-107); CREATININE 1.2 mg/dL (0.7-1.3); ESTIMATED GFR 82 mL/min (>60); GLUCOSE RANDOM 117 mg/dL (70-99); LIPASE 93 U/L (16-77); PROTEIN TOTAL,TP 7.7 g/dl (6.4-8.2); SODIUM,NA 141 mEq/L (136-145); TROPONIN I HIGH SENSITIVITY < 4 pg/mL (<=76)
[2024-12-13 22:17] LABS: ASPARTATE AMNIOTRANSFERASE,AST 46 U/L (15-37); POTASSIUM,K 3.9 mEq/L (3.5-5.1)
== END 2024-12-14 02:36 | disposition home or self-care (01) ==
LOC: JD.ED 21:10
DX: R07.9 Chest pain, unspecified (principal); R74.8 Abnormal levels of other serum enzymes; Z88.0 Allergy status to penicillin; Z79.899 Other long term (current) drug therapy
CPT/HCPCS: 36415; 71045; 80053; 83690; 84484; 85025; 93005; 99285; A9270; 93010; 99284

== ENCOUNTER 2025-04-21 21:15 | Emergency (ER) | payer OTHER ==
[2025-04-21] MEDS: diphenhydrAMINE 50 MG/ML SDV IVPUSH ONE (21:43)
[2025-04-21] MEDS: Ketorolac 30 MG/ML SDV IVPUSH ONE (21:46)
[2025-04-21] MEDS: Sodium Chloride 0.9% 10 ML Syringe FLUSH PRN (21:46)
== END 2025-04-21 23:05 | disposition home or self-care (01) ==
LOC: JD.ED 21:15
DX: G43.909 Migraine, unspecified, not intractable, without status migrainosus (principal); Z88.0 Allergy status to penicillin; Z79.899 Other long term (current) drug therapy; Z86.16 Personal history of COVID-19
CPT/HCPCS: 96374; 96375; 99283; J1200; J1885; J2765